=== PATIENT | male | born 1960 | race Caucasian/White ===

== ENCOUNTER 2018-07-07 07:52 | Day surgery (SDC) | payer BC, OTHER ==
[~2018-07-07] VITALS: Ht 198.1 cm; Wt 135.7 kg
[~2018-07-07 07:52] MED LIST: GLIP10 PO; INSULANPEN SC; Omeprazole20 M1 PO
== END 2018-07-07 10:08 | disposition home or self-care (01) ==
LOC: ORSCSDS 07:52
PROVIDERS: Surgery
PROC: 0DJD8ZZ Inspection of Lower Intestinal Tract, Via Natural or Artificial Opening Endoscopic (ICD-10-PCS; principal; 2018-07-07 09:15)
DX: Z12.11 Encounter for screening for malignant neoplasm of colon (principal); Z86.010 Personal history of colon polyps; K57.30 Diverticulosis of large intestine without perforation or abscess without bleeding; E11.9 Type 2 diabetes mellitus without complications; Z79.4 Long term (current) use of insulin; Z79.899 Other long term (current) drug therapy
CPT/HCPCS: 82947; J7120

== ENCOUNTER 2023-12-17 08:44 | Day surgery (SDC) | payer OTHER ==
[~2023-12-17] VITALS: Ht 198.1 cm; Wt 127.6 kg
[~2023-12-17 08:44] MED LIST changes: +Crestor40 MG PO; +GLUCOPHAGE1000 M1 PO; +LOSA25 PO; +Lactated Ringer's 1,000 ML IV ONE; +METO25ER PO; +propofoL 50 ML IV ONE
[2023-12-17] MEDS ORDERED: OZEMPIC0.25 MG/02 (09:15)
[2023-12-17] MEDS ORDERED: VITAMIN D350 MC3 (09:15)
[2023-12-17] MEDS ORDERED: B-12500 MC2 (09:15)
[2023-12-17] MEDS ORDERED: Lactated Ringer's 1,000 ML IV ONE (10:07)
[2023-12-17] MEDS ORDERED: propofoL 50 ML IV ONE (11:31)
--- NOTE | 2023-12-17 11:36 | NUR ---
12/17/23 1136 JUANJOSE CM PT CARE TO [facility].RDS AT 1135. END NOTE
[2023-12-17 12:28] VITALS: BP 115/84
== END 2023-12-17 12:35 | disposition home or self-care (01) ==
LOC: ORSCSDS 08:44
PROVIDERS: Surgery
PROC: 0DJD8ZZ Inspection of Lower Intestinal Tract, Via Natural or Artificial Opening Endoscopic (ICD-10-PCS; principal; 2023-12-17 09:45)
DX: Z12.11 Encounter for screening for malignant neoplasm of colon (principal); Z86.010 Personal history of colon polyps; K64.8 Other hemorrhoids; E11.9 Type 2 diabetes mellitus without complications; Z79.84 Long term (current) use of oral hypoglycemic drugs; Z79.899 Other long term (current) drug therapy; Z87.891 Personal history of nicotine dependence
CPT/HCPCS: 82947; J2704; J7120